=== PATIENT | female | born 1995 | race African-American/Black ===

== ENCOUNTER 2021-06-07 00:13 | Emergency (ER) | payer MEDICAID ==
[~2021-06-07] VITALS: Ht 157.5 cm; Wt 119.0 kg
[2021-06-07] MEDS ORDERED: LIDOCAINE HCL 1%/EPI 1:200,000 30 ML VIAL MC ONE (03:00)
[2021-06-07] MEDS ORDERED: KETOROLAC 15MG/ML VIAL IM ONE (03:00)
[2021-06-07 03:06] VITALS: BP 115/66
[2021-06-07] MEDS ORDERED: CEFI200T MT ×2 (03:45)
[2021-06-07] MEDS ORDERED: CLIN300C12 MT ×3 (03:49→03:51)
[2021-06-07] MEDS ORDERED: IBUP-2028 MT ×2 (03:49)
[2021-06-07] MEDS ORDERED: CEFI400C MT (03:51)
== END 2021-06-07 04:21 | disposition home or self-care (01) ==
LOC: ER 00:13
DX: N75.1 Abscess of Bartholin's gland (principal)
CPT/HCPCS: 56420; 96372; 99284; J1885; 99283